=== PATIENT | female | born 1985 | race Native Hawaiian/Other Pacific Islander ===

== ENCOUNTER → 2017-01-29 07:57 | Outpatient (CLI) | payer OTHER | END | disposition home or self-care (01) | LOC: AMB 07:57 | DX: Z04.1 Encounter for examination and observation following transport accident (principal) ==

== ENCOUNTER 2019-02-23 15:22 | Outpatient (CLI) | payer OTHER ==
[2019-02-23 16:14] LABS: POTASSIUM 3.7 mmol/L (3.6-5.2)
== END 2019-02-23 21:09 | disposition home or self-care (01) ==
LOC: LABW 15:22
PROVIDERS: Nurse Practitioner
DX: E66.9 Obesity, unspecified (principal); R53.82 Chronic fatigue, unspecified; E16.2 Hypoglycemia, unspecified
CPT/HCPCS: 36415; 80048; 82672; 83036; 84144; 84402; 84403; 84439; 84443; 84481

== ENCOUNTER 2020-05-13 13:38 | Outpatient (CLI) | payer OTHER | END 2020-05-13 19:23 | disposition home or self-care (01) | LOC: RAD 13:38 | DX: J40 Bronchitis, not specified as acute or chronic (principal) ==

== ENCOUNTER 2020-10-16 14:34 | Outpatient (CLI) | payer OTHER | END 2020-10-16 22:16 | disposition home or self-care (01) | LOC: LABW 14:34 | PROVIDERS: ATTEND Internal Medicine | DX: U07.1 COVID-19 (principal); Z11.59 Encounter for screening for other viral diseases | CPT/HCPCS: 36415; 86769 ==

== ENCOUNTER 2021-07-31 07:58 | Outpatient (CLI) | payer OTHER ==
[2021-07-31 08:26] LABS: PLATELET COUNT 242 K/uL (152-353)
[2021-07-31 08:53] LABS: POTASSIUM 3.9 mmol/L (3.6-5.2)
== END 2021-07-31 16:00 | disposition home or self-care (01) ==
LOC: LABW 07:58
PROVIDERS: ATTEND Nurse Practitioner Family
DX: Z01.84 Encounter for antibody response examination (principal); R53.83 Other fatigue; Z13.1 Encounter for screening for diabetes mellitus; Z13.220 Encounter for screening for lipoid disorders; E28.2 Polycystic ovarian syndrome
CPT/HCPCS: 36415; 80053; 80061; 82306; 82533; 82607; 82627; 82670; 83001; 83002; 83036; 83498; 83525; 83527; 84146; 84270; 84402; 84403; 84439; 84443; 84481; 85027; 86376; 86769